=== PATIENT | female | born 1950 | race Caucasian/White ===

== ENCOUNTER 2018-01-19 06:45 | Day surgery (SDC) | payer MEDICARE ==
[~2018-01-19] VITALS: Ht 167.6 cm; Wt 111.6 kg
[~2018-01-19 06:45] MED LIST: ALBU2.5V5; ALBU90OI; ALBU90OI INH; CLOB.05TO; Calcium Acetat667 MG PO; Diovan160 MG; LORA1; LORA1 PO; Multivitamin1 EAC1 PO; Oxybutynin Chlo10 MG; Oxybutynin Chlo10 MG PO; ROPI2 PO; VALSARTAN160 MG PO; Zantac150 MG; Zantac150 MG PO
[2018-01-19] MEDS ORDERED: HYDCHL25 PO (07:20)
== END 2018-01-19 11:40 | disposition home or self-care (01) ==
LOC: ORSCSDS 06:45
PROVIDERS: Podiatrist Foot & Ankle Surgery
PROC: 0MQR0ZZ Repair Left Ankle Bursa and Ligament, Open Approach (ICD-10-PCS; principal; 2018-01-19 08:15)
PROC: 0LQW0ZZ Repair Left Foot Tendon, Open Approach (ICD-10-PCS; principal; 2018-01-19 08:15)
DX: M66.862 Spontaneous rupture of other tendons, left lower leg (principal); S93.692A Other sprain of left foot, initial encounter; I12.9 Hypertensive chronic kidney disease with stage 1 through stage 4 chronic kidney disease, or unspecified chronic kidney disease; N18.9 Chronic kidney disease, unspecified; F17.210 Nicotine dependence, cigarettes, uncomplicated; E66.01 Morbid (severe) obesity due to excess calories; Z68.41 Body mass index [BMI] 40.0-44.9, adult; Z79.899 Other long term (current) drug therapy
CPT/HCPCS: C1713; J0690; J1100; J2250; J2405; J3010; J7120

== ENCOUNTER 2019-10-16 00:05 | Day surgery (SDC) | payer MEDICARE ==
[~2019-10-16 00:05] MED LIST changes: +HYDCHL25 PO
--- NOTE | 2019-10-16 09:30 | NUR ---
PT ARRIVES TO APPT AND HAS INTAKE OF 20 OUNCES OF H2O. PT HAS URGENCY AND BLADDER SCAN REVEALS 362 ML. PT UP TO BRP AND VOIDED 300 ML OF YELLOW URINE. RESCANNED BLADDER AND REVEALS 0 ML OF URINE. PT HOSEA PROCEDURE WELL, WILL FAX THIS TX RECORD TO DR RAYMOND,
== END 2019-10-16 09:19 | disposition home or self-care (01) ==
LOC: ATC 00:05
DX: N39.46 Mixed incontinence (principal); I12.9 Hypertensive chronic kidney disease with stage 1 through stage 4 chronic kidney disease, or unspecified chronic kidney disease; N18.3 Chronic kidney disease, stage 3 (moderate); Z88.6 Allergy status to analgesic agent; Z88.5 Allergy status to narcotic agent; Z79.899 Other long term (current) drug therapy
CPT/HCPCS: 51798

== ENCOUNTER 2021-02-16 06:22 | Day surgery (SDC) | payer MEDICARE ==
[~2021-02-16] VITALS: Ht 165.1 cm; Wt 108.0 kg
[~2021-02-16 06:22] MED LIST changes: +Aspir 8181 MG PO; +CLON.1 PO; +CYCL10 PO; +Crestor20 MG PO; +DILT120 PO; +FURO20 PO; +HYDR1TAB94 PO; +LOSA50 PO; +METO25 PO; +POTA10T PO
[2021-02-16] MEDS ORDERED: GLUCHON PO (07:21)
--- NOTE | 2021-02-16 09:19 | NUR ---
PT BACK TO RECOVERY ROOM VIA RECLINER, DENIES PAIN OR DISCOMFORT. RIGHT RADIAL SITE WITH TR BAND IN PLACE. NO BLEEDING OR SWELLING NOTED.
--- NOTE | 2021-02-16 10:31 | NUR ---
PT AMBULATED TO BATHROOM WITHOUT DIFFICULTY. DENIES PAIN OR DISCOMFORT. RX FOR PLAVIX CALLED INTO [facility] ON [address] PER PT REQUEST.
--- NOTE | 2021-02-16 11:15 | NUR ---
RIGHT RADIAL TR BAND HAS BEEN FULLY DEFLATED. NO BLEEDING OR SWELLING NOTED. SOME PURPLE BRUISING AROUND SITE, PT STATES IS MILDLY TENDER. PT DENIES NEEDS, CALL LIGHT IN REACH
[2021-02-16] MEDS ORDERED: PLAVIX75 MG PO (11:49)
--- NOTE | 2021-02-16 12:00 | NUR ---
IV DC'D, CATH INTACT. PT GIVEN DC INSTRUCTIONS AND FOLLOW UP INFO. VERBALIZED UNDERSTANDING. RIGHT RADIAL SITE REMAINS SOFT AND WITHOUT SWELLING. SPLINT AND SPLING IN PLACE. PT OUT TO CAR VIA WHEELCHAIR, ACCOMPANIED BY FRIENDS.
== END 2021-02-16 12:00 | disposition home or self-care (01) ==
LOC: MHTC 06:22
DX: I25.118 Atherosclerotic heart disease of native coronary artery with other forms of angina pectoris (principal); I25.82 Chronic total occlusion of coronary artery; E11.22 Type 2 diabetes mellitus with diabetic chronic kidney disease; I13.0 Hypertensive heart and chronic kidney disease with heart failure and stage 1 through stage 4 chronic kidney disease, or unspecified chronic kidney disease; N18.2 Chronic kidney disease, stage 2 (mild); I50.9 Heart failure, unspecified; E66.01 Morbid (severe) obesity due to excess calories; E78.00 Pure hypercholesterolemia, unspecified; F17.200 Nicotine dependence, unspecified, uncomplicated; Z88.8 Allergy status to other drugs, medicaments and biological substances; Z88.5 Allergy status to narcotic agent; Z88.6 Allergy status to analgesic agent; Z79.82 Long term (current) use of aspirin; Z68.39 Body mass index [BMI] 39.0-39.9, adult
CPT/HCPCS: 76937; 93458; 99152; 99153; A9270; C1769; C1894; J1644; J2250; J3010; J7030; J7050; Q9967

== ENCOUNTER → 2021-04-01 | Outpatient (CLI) | payer MEDICARE ==
[~2021-04-01] MED LIST changes: +AMLO5 PO; +Amiodarone HCl200 MG PO; +Calicum 500+D1 EACH; +ERYT.5TO BOTHEYES; +GLUCHON PO; +KETO.5OPSO BOTHEYES; +NITR.4SL SL; +Norco 5-325 Ta1 EACH PO; +PLAVIX75 MG PO
== END | disposition home or self-care (01) ==
LOC: LAB 16:37 → LAB SHORT 16:37
DX: L02.415 Cutaneous abscess of right lower limb (principal); L03.90 Cellulitis, unspecified
CPT/HCPCS: 87070; 87077; 87186; 87205

== ENCOUNTER 2021-05-19 10:40 | Emergency (ER) | payer MEDICARE ==
[~2021-05-19] VITALS: Ht 165.1 cm; Wt 113.4 kg
[2021-05-19 11:38] LABS: BASOPHILS ABSOLUTE AUTO 0.03 K/mm3 (0.00-0.23); BASOPHILS PERCENT AUTO 0 % (0-2); EOSINOPHILS ABSOLUTE AUTO 0.29 K/mm3 (0.00-0.68); EOSINOPHILS PERCENT AUTO 4 % (0-6); Hematocrit 35.2 % (33.0-51.0); Hemoglobin 10.8 g/dL (11.5-16.0); IMMATURE GRAN ABSOLUTE AUTO 0.02 K/mm3 (0.00-0.10); IMMATURE GRAN PERCENT AUTO 0 % (0-1); LYMPHOCYTES ABSOLUTE AUTO 1.35 K/mm3 (0.84-5.20); LYMPHOCYTES PERCENT AUTO 17 % (21-46); MONOCYTES ABSOLUTE AUTO 0.61 K/mm3 (0.16-1.47); MONOCYTES PERCENT AUTO 8 % (4-13); Mean Corpuscular HGB 27.1 pg (26.0-34.0); Mean Corpuscular HGB Conc 30.7 g/dL (31.5-36.5); Mean Corpuscular Volume 88 fL (80-100); Mean Platelet Volume 11.9 fL (9.1-12.4); NEUTROPHILS ABSOLUTE AUTO 5.68 K/mm3 (1.96-9.15); NEUTROPHILS PERCENT AUTO 71 % (41-73); Platelet Count 275 K/mm3 (150-400); RDW Coefficient Variation 13.9 % (11.7-14.2); RDW Standard Deviation 44.9 fL (35.1-46.3); Red Blood Cell Count 3.99 M/mm3 (3.80-5.20); White Blood Cell Count 7.98 K/mm3 (4.00-11.30)
[2021-05-19 12:09] LABS: Albumin, Blood 2.7 g/dL (3.4-5.0); Albumin/Globulin Ratio 0.8 (0.8-1.8); Bilirubin, Total 0.3 mg/dL (0.1-1.0); Bun/Creatinine Ratio 20.6 (12.0-20.0); Calcium, Blood 9.1 mg/dL (8.5-10.1); Creatinine, Blood 1.31 mg/dL (0.40-1.00); Globulin, Blood 3.6 g/dL (2.2-4.0); Potassium, Blood 4.7 mmol/L (3.5-5.5); Total Protein, Blood 6.3 g/dL (6.4-8.2)
== END 2021-05-19 15:04 | disposition left against medical advice (07) ==
LOC: ER 10:40
PROVIDERS: Physician Assistant
DX: M79.89 Other specified soft tissue disorders (principal); Z53.21 Procedure and treatment not carried out due to patient leaving prior to being seen by health care provider
CPT/HCPCS: 36415; 71046; 80053; 85025; 99284

== ENCOUNTER 2021-05-20 07:31 | Emergency (ER) | payer MEDICARE ==
[~2021-05-20] VITALS: Ht 165.1 cm; Wt 113.4 kg
== END 2021-05-20 11:07 | disposition home or self-care (01) ==
LOC: ER 07:31
DX: T81.89XA Other complications of procedures, not elsewhere classified, initial encounter (principal); S71.101D Unspecified open wound, right thigh, subsequent encounter; I10 Essential (primary) hypertension; E78.5 Hyperlipidemia, unspecified; Z87.891 Personal history of nicotine dependence; Z88.6 Allergy status to analgesic agent; Z88.5 Allergy status to narcotic agent; Z88.8 Allergy status to other drugs, medicaments and biological substances; Z79.899 Other long term (current) drug therapy; Z79.82 Long term (current) use of aspirin
CPT/HCPCS: 99282

== ENCOUNTER → 2021-05-25 | Outpatient (CLI) | payer MEDICARE | END | disposition home or self-care (01) | LOC: LAB SHORT 13:02 → LAB 13:02 | DX: L02.415 Cutaneous abscess of right lower limb (principal) | CPT/HCPCS: 87070; 87077; 87205 ==

== ENCOUNTER 2021-07-30 11:59 | Observation (INO) | payer MEDICARE ==
[~2021-07-30] VITALS: Ht 165.1 cm; Wt 113.0 kg
[2021-07-30] MEDS ORDERED: XARELTO20 MG PO (12:33)
[2021-07-30] MEDS ORDERED: DULO60 PO (12:34)
[2021-07-30] MEDS ORDERED: Felodipine ER5 MG PO (12:35)
[2021-07-30] MEDS ORDERED: METO25ER PO (12:36)
[2021-07-30] MEDS ORDERED: OMEP20ER PO (13:01)
--- NOTE | 2021-07-30 16:19 | NUR ---
CARE ASSUMPTION/ARRIVAL TO PCU PATIENT ARRIVED TO [facility]U FROM [facility] VIA PCU BED. PATIENT IS ALERT AND ORIENTED X4. PERRLA. NEURO IS INTACT. VSS. TELE PACED SR 78. PATIENT REPORTS NO CHEST PAIN. PATIENT HAS STRONG RADIAL PULSES AND WEAK PEDIS PULSES. PATIENT RIGHT LEG IS SWOLLEN, RED, EDEMATRIS, AND WARM TO THE TOUCH. PATIENT STATES IT HAS BEEN LIKE THIS. PATIENT NO SKIN ISSUES NOTED BESIDES WHERE PACER WAS IMPLANTED. THE SITE IS CLEAN, NO BLEEDING, SWELLING OR REDDNESS, NONTENDER. PATIET LUNG SOUNDS CLEAR/DIM. SEE ASSESSMENT DETAILS FOR FULL ASSESSMENT. PATIENT HAS NO COMPLAINTS AT THIS TIME AND IS STAYING OVERNIGHT FOR OBSERVATION AND THE PLAN IS TO DISCHARGE IN THE MORNING. THIS RN CALLED AND INFORMED HER . CALL LIGHT IS WITHIN REACH AND BED IN LOWEST POSITION. WILL CONTINUE TO MONITOR AND PROVIDER CARE.
--- NOTE | 2021-07-30 18:30 | NUR ---
SHIFT SUMMARY PATIENT NEURO REMAINS UNCHAGED FROM ARRIVAL TO UNIT. PATIENT REPORTS SOME DISCOMFORT AND INCISION SITE AND RECEIVED PAIN MED PER EMAR. PATIENT TOOK A WALK AROUND THE UNIT WITH VISITOR. PATIENT HAS A SLING IN PLACE AND WAS EDUCATED ON MOVEMENT OF ARM POST PROCEDURE. NO ACUTE CHANGES. WILL CONTINUE TO MONITOR AND PROVIDE CARE UNTIL HAND OFF WITH NEXT SHIFT.
[2021-07-31 04:08] LABS: BASOPHILS ABSOLUTE AUTO 0.04 K/mm3 (0.00-0.23); BASOPHILS PERCENT AUTO 0 % (0-2); EOSINOPHILS ABSOLUTE AUTO 0.34 K/mm3 (0.00-0.68); EOSINOPHILS PERCENT AUTO 4 % (0-6); Hematocrit 43.2 % (33.0-51.0); Hemoglobin 12.6 g/dL (11.5-16.0); IMMATURE GRAN ABSOLUTE AUTO 0.01 K/mm3 (0.00-0.10); IMMATURE GRAN PERCENT AUTO 0 % (0-1); LYMPHOCYTES PERCENT AUTO 15 % (21-46); MONOCYTES ABSOLUTE AUTO 0.68 K/mm3 (0.16-1.47); MONOCYTES PERCENT AUTO 7 % (4-13); Mean Corpuscular HGB 25.2 pg (26.0-34.0); Mean Corpuscular HGB Conc 29.2 g/dL (31.5-36.5); Mean Corpuscular Volume 86 fL (80-100); Mean Platelet Volume 11.6 fL (9.1-12.4); NEUTROPHILS ABSOLUTE AUTO 6.84 K/mm3 (1.96-9.15); NEUTROPHILS PERCENT AUTO 74 % (41-73); Platelet Count 247 K/mm3 (150-400); RDW Coefficient Variation 15.5 % (11.7-14.2); RDW Standard Deviation 49.1 fL (35.1-46.3); White Blood Cell Count 9.31 K/mm3 (4.00-11.30)
[2021-07-31 04:25] LABS: Bun/Creatinine Ratio 21.7 (12.0-20.0); Calcium, Blood 9.2 mg/dL (8.5-10.1); Creatinine, Blood 1.38 mg/dL (0.40-1.00); Potassium, Blood 4.4 mmol/L (3.5-5.5)
--- NOTE | 2021-07-31 09:08 | NUR ---
CARE ASSUMPTION PATIENT IS ALERT AND ORIENTED X4. PERRLA. NEURO IS INTACT. VSS. SPO2 >90% ON VENTI MASK 75L 95% AND RR 28. PATIENT DID REPORT SOME DIFFICULTY BREATHING AND RT NOTIFED. LUNG SOUNDS CLEAR/DIM. PATIENT REPORTS RIB PAIN, SHOULDER, BACK, AND LEG PAIN. PATIENT RECEIVED PAIN MED PER EMAR AND OFFERED NONPHARMALOGICAL OPTIONS FOR RELIEF. SEE SHIFT ASSESSMENT FOR FULL DETAILS. PATIENT FAMILY IS AT BEDSIDE. THIS RN PROVIDED ACTIVE LISTENING AND THERPAUETIC COMMUNICATION WHEN FAMILY ADDRESS CONCERNS AND WHEN PATIENT WAS TALKING ABOUT HIS PREVIOUS JOB. BED IS IN LOWEST POSITION AND CALL LIGHT WITHIN REACH. WILL CONTINUE TO MONITOR AND PROVIDE CARE.
--- NOTE | 2021-07-31 09:25 | NUR ---
CARE ASSUMPTION PATIENT IS ALERT AND ORIENTED X4. PERRLA. NEURO IS INTACT. VSS. TELE SR/PACED. PATIENT REPORTS NO CHEST PAIN. CAP REFILL <3SECONDS. STRONG RADIAL AND PEDIS PULSE. PATIENT LUNG SOUNDS CLEAR. PATIENT REPORTS NO PAIN, BUT SLIGHT DISCOMFORT FROM HER PACER INSERTION. PACER WAS INTERROGATED THIS AM FROM [facility]. CALL LIGHT WITHIN REACH AND BED IN LOWEST POSITION. WILL CONTINUE TO MONITOR AND PROVIDE CARE.
--- NOTE | 2021-07-31 11:58 | NUR ---
DISCHARGE THIS RN PROVIDED DISCHARGE EDUCATION TO THE PATIENT. THIS RN WENT OVER WHAT MEDICATIONS TO HOLD UNTIL PATIENT SEES FOLLOW UP WITH DRILLING FLUIDS SPECIALIST, WENT OVER ACTIVITY RESTRICTIONS, AND OTHER RESTRICTIONS. THIS RN REMOVED THE PATIENT IV. ALL OF THE PATIENT BELONGINGS WERE GATHERED AND WITH THE PATIENT WHEN SHE LEFT. PATIENT LEFT VIA WHEELCHAIR AND HER PICKED HER UP. PATIENT WAS IN NO DISTRESS WHEN LEAVING AND HAD NO CHANGES.
== END 2021-07-31 11:55 | disposition home or self-care (01) ==
LOC: MHTC 11:59 → PCU 14:58 → MHTC 15:27 → PCU 15:27
PROVIDERS: Internal Medicine Cardiovascular Disease; ADMIT Internal Medicine Cardiovascular Disease
DX: I49.5 Sick sinus syndrome (principal); I25.10 Atherosclerotic heart disease of native coronary artery without angina pectoris; I48.0 Paroxysmal atrial fibrillation; E78.5 Hyperlipidemia, unspecified; E11.22 Type 2 diabetes mellitus with diabetic chronic kidney disease; I12.9 Hypertensive chronic kidney disease with stage 1 through stage 4 chronic kidney disease, or unspecified chronic kidney disease; N18.9 Chronic kidney disease, unspecified; E66.01 Morbid (severe) obesity due to excess calories; F17.210 Nicotine dependence, cigarettes, uncomplicated; Z95.1 Presence of aortocoronary bypass graft; Z88.5 Allergy status to narcotic agent; Z88.8 Allergy status to other drugs, medicaments and biological substances; Z88.6 Allergy status to analgesic agent; Z68.41 Body mass index [BMI] 40.0-44.9, adult
CPT/HCPCS: 33228; 36415; 71046; 80048; 85025; 99152; 99153; A9270; C1785; C1894; C1898; J0690; J1580; J2250; J3010; J7030; J7040

== ENCOUNTER 2021-11-05 03:31 | Day surgery (SDC) | payer MEDICARE, OTHER ==
[~2021-11-05 03:31] MED LIST changes: +DULO60 PO; +Felodipine ER5 MG PO; +METO25ER PO; +OMEP20ER PO; +XARELTO20 MG PO
== END 2021-11-05 23:21 | disposition home or self-care (01) ==
LOC: WOUND 03:31
DX: I87.311 Chronic venous hypertension (idiopathic) with ulcer of right lower extremity (principal); L97.812 Non-pressure chronic ulcer of other part of right lower leg with fat layer exposed; I87.2 Venous insufficiency (chronic) (peripheral); Z95.1 Presence of aortocoronary bypass graft; Z72.0 Tobacco use
CPT/HCPCS: G0463

== ENCOUNTER 2022-10-03 11:21 | Day surgery (SDC) | payer MEDICARE, OTHER ==
[~2022-10-03] VITALS: Ht 165.1 cm; Wt 117.3 kg
[2022-10-03] MEDS ORDERED: ABILIFY MYCITE2 M2 (12:16)
[2022-10-03] MEDS ORDERED: Isosorbide Mono30 MG (12:16)
[2022-10-03] MEDS ORDERED: PREG50 (12:17)
[2022-10-03] MEDS ORDERED: SPIR25 (12:17)
[2022-10-03] MEDS ORDERED: VERA180ERB (12:17)
[2022-10-03] MEDS ORDERED: CATAPRES-TTS 31 EAC2 (12:17)
[2022-10-03] MEDS ORDERED: TRELEGY ELLIPT1 EACH (12:18)
[2022-10-03] MEDS ORDERED: ALBU90OI (12:18)
[2022-10-03] MEDS ORDERED: MODA200 (12:18)
[2022-10-03 15:09] VITALS: BP 153/89
== END 2022-10-03 14:55 | disposition home or self-care (01) ==
LOC: ORSCSDS 11:21
PROVIDERS: Student in an Organized Health Care Education/Training Program
PROC: 0DBL8ZX Excision of Transverse Colon, Via Natural or Artificial Opening Endoscopic, Diagnostic (ICD-10-PCS; principal; 2022-10-03 12:45)
PROC: 0DBM8ZX Excision of Descending Colon, Via Natural or Artificial Opening Endoscopic, Diagnostic (ICD-10-PCS; principal; 2022-10-03 12:45)
PROC: 0DBN8ZX Excision of Sigmoid Colon, Via Natural or Artificial Opening Endoscopic, Diagnostic (ICD-10-PCS; principal; 2022-10-03 12:45)
DX: Z12.11 Encounter for screening for malignant neoplasm of colon (principal); Z86.010 Personal history of colon polyps; D12.3 Benign neoplasm of transverse colon; K63.5 Polyp of colon; I10 Essential (primary) hypertension; I25.10 Atherosclerotic heart disease of native coronary artery without angina pectoris; G47.33 Obstructive sleep apnea (adult) (pediatric); J44.9 Chronic obstructive pulmonary disease, unspecified; F17.210 Nicotine dependence, cigarettes, uncomplicated; E11.9 Type 2 diabetes mellitus without complications; E66.01 Morbid (severe) obesity due to excess calories; Z68.41 Body mass index [BMI] 40.0-44.9, adult; Z79.899 Other long term (current) drug therapy; Z79.01 Long term (current) use of anticoagulants
CPT/HCPCS: 88305; J2405; J2704; J7120

== ENCOUNTER 2024-02-23 04:48 | Day surgery (SDC) | payer MEDICARE, OTHER ==
[~2024-02-23 04:48] MED LIST changes: +ABILIFY MYCITE2 M2; +CATAPRES-TTS 31 EAC2; +Isosorbide Mono30 MG; +MODA200; +PREG50; +SPIR25; +TRELEGY ELLIPT1 EACH; +VERA180ERB
== END 2024-02-24 01:42 | disposition home or self-care (01) ==
LOC: WOUND 04:48
DX: S81.801D Unspecified open wound, right lower leg, subsequent encounter (principal); Z95.1 Presence of aortocoronary bypass graft; X58.XXXD Exposure to other specified factors, subsequent encounter
CPT/HCPCS: A6213; G0463

== ENCOUNTER 2024-03-07 02:19 | Day surgery (SDC) | payer MEDICARE, OTHER ==
[2024-03-07] MEDS ORDERED: Lidocaine HCl 4% Cream 5 GM ONE (12:23)
== END 2024-03-07 23:00 | disposition home or self-care (01) ==
LOC: WOUND 02:19
DX: L97.822 Non-pressure chronic ulcer of other part of left lower leg with fat layer exposed (principal); L97.812 Non-pressure chronic ulcer of other part of right lower leg with fat layer exposed; S81.801A Unspecified open wound, right lower leg, initial encounter; X58.XXXA Exposure to other specified factors, initial encounter
CPT/HCPCS: 87070; 87075; 87077; 87186; 87205; A6213; A9270

== ENCOUNTER 2024-03-14 02:12 | Day surgery (SDC) | payer MEDICARE, OTHER ==
[2024-03-14] MEDS ORDERED: Lidocaine HCl 4% Cream 5 GM ONE (12:20)
== END 2024-03-15 02:49 | disposition home or self-care (01) ==
LOC: WOUND 02:12
DX: I87.312 Chronic venous hypertension (idiopathic) with ulcer of left lower extremity (principal); L97.822 Non-pressure chronic ulcer of other part of left lower leg with fat layer exposed; I89.0 Lymphedema, not elsewhere classified; I48.91 Unspecified atrial fibrillation; Z79.01 Long term (current) use of anticoagulants
CPT/HCPCS: A6213; A9270

== ENCOUNTER 2024-03-22 02:44 | Day surgery (SDC) | payer MEDICARE, OTHER ==
[2024-03-22] MEDS ORDERED: Lidocaine HCl 4% Cream 5 GM ONE (12:22)
[2024-03-22] MEDS ORDERED: Silver Nitr/Potassium Nitrate 1 EA APPL ONE (13:09)
== END 2024-03-22 23:00 | disposition home or self-care (01) ==
LOC: WOUND 02:44
DX: I87.312 Chronic venous hypertension (idiopathic) with ulcer of left lower extremity (principal); L97.822 Non-pressure chronic ulcer of other part of left lower leg with fat layer exposed
CPT/HCPCS: A9270

== ENCOUNTER 2024-03-29 03:11 | Day surgery (SDC) | payer MEDICARE, OTHER ==
[2024-03-29] MEDS ORDERED: Lidocaine HCl 4% Cream 5 GM ONE (10:54)
== END 2024-03-29 23:43 | disposition home or self-care (01) ==
LOC: WOUND 03:11
DX: I87.313 Chronic venous hypertension (idiopathic) with ulcer of bilateral lower extremity (principal); L97.822 Non-pressure chronic ulcer of other part of left lower leg with fat layer exposed; I87.2 Venous insufficiency (chronic) (peripheral); Z72.0 Tobacco use
CPT/HCPCS: 99406; A6213; A9270

== ENCOUNTER 2024-04-04 03:35 | Day surgery (SDC) | payer MEDICARE, OTHER | END 2024-04-04 23:00 | disposition home or self-care (01) | LOC: WOUND 03:35 | DX: I87.313 Chronic venous hypertension (idiopathic) with ulcer of bilateral lower extremity (principal); L97.822 Non-pressure chronic ulcer of other part of left lower leg with fat layer exposed; I87.2 Venous insufficiency (chronic) (peripheral); Z72.0 Tobacco use | CPT/HCPCS: A6213; G0463 ==

== ENCOUNTER 2024-04-12 04:05 | Day surgery (SDC) | payer MEDICARE, OTHER | END 2024-04-13 03:05 | disposition home or self-care (01) | LOC: WOUND 04:05 | DX: I87.313 Chronic venous hypertension (idiopathic) with ulcer of bilateral lower extremity (principal); L97.822 Non-pressure chronic ulcer of other part of left lower leg with fat layer exposed; I87.2 Venous insufficiency (chronic) (peripheral); Z72.0 Tobacco use | CPT/HCPCS: G0463 ==

== ENCOUNTER 2025-01-14 10:46 | Day surgery (SDC) | payer MEDICARE, OTHER ==
[~2025-01-14] VITALS: Ht 162.6 cm; Wt 110.2 kg
[~2025-01-14 10:46] MED LIST changes: -ABILIFY MYCITE2 M2; +ABILIFY MYCITE2 M2 PO; +Chantix1 MG PO; -Crestor20 MG PO; +Crestor40 MG PO; +Diflucan100 MG PO; +EPLE25 PO; +FARXIGA10 MG PO; -Isosorbide Mono30 MG; +Isosorbide Mono30 MG PO; -PREG50; +PREG50 PO; -VERA180ERB; +VERA180ERB PO
[2025-01-14 11:02] VITALS: BP 142/87
[2025-01-14] MEDS ORDERED: CATAPRES0.3 MG PO (11:15)
[2025-01-14] MEDS ORDERED: NS 1,000 ML IV ONE ×2 (11:39→11:48)
[2025-01-14] MEDS ORDERED: Bupivacaine 0.5% HCl 5 MG/ML 30MLVIAL ONE (11:48)
[2025-01-14] MEDS ORDERED: Dexamethasone Sodium Phosphate 4 MG/ML 5ML VIAL XX ONE (12:05)
[2025-01-14] MEDS ORDERED: Midazolam HCl 1MG / ML 2ML Vial ONE (12:25)
[2025-01-14] MEDS ORDERED: FentaNYL Citrate 50 MCG/ML 2 ML Injection ONE (12:27)
[2025-01-14 14:02] VITALS: BP 153/92
--- NOTE | 2025-01-14 14:13 | NUR ---
FOLLOWED PT BACK TO RECOVERY ROOM, VS WNL. DRESSINGS ON BILATERAL KNEES WITHOUT DRAINAGE NOTED. PT SITTING UP EATING LUNCH.
[2025-01-14 14:15] VITALS: BP 91/78
[2025-01-14 14:25] VITALS: BP 153/96
[2025-01-14 14:30] VITALS: BP 144/85
--- NOTE | 2025-01-14 14:43 | NUR ---
IN TO TALK WITH PT, ALL QUESTIONS ANSWERED. PT HAS BEEN UP TO BATHROOM AND DRESSED. BILATERAL KNEE DRESSINGS IN PLACE AND NO DRAINAGE NOTED.
--- NOTE | 2025-01-14 15:07 | NUR ---
DISCHARGE INSTRUCTIONS GONE OVER WITH PT, VERBALIZES UNDERSTANDING OF INSTRUCTIONS. SALINE LOCK REMOVED WITH CATHETER INTACT, DRESSING APPLIED. PT TO PRIVATE VEHICLE WITH ONE STAFF PER W/C. WALKER LEFT AT ADMITTING PICKED UP WELL AND GIVEN TO SPOUSE.
== END 2025-01-14 15:25 | disposition home or self-care (01) ==
LOC: MHTC 10:46
DX: M17.0 Bilateral primary osteoarthritis of knee (principal); I25.10 Atherosclerotic heart disease of native coronary artery without angina pectoris; I12.9 Hypertensive chronic kidney disease with stage 1 through stage 4 chronic kidney disease, or unspecified chronic kidney disease; N18.9 Chronic kidney disease, unspecified; G25.81 Restless legs syndrome; F17.210 Nicotine dependence, cigarettes, uncomplicated; G47.10 Hypersomnia, unspecified; G47.33 Obstructive sleep apnea (adult) (pediatric); G89.29 Other chronic pain; N39.46 Mixed incontinence; I49.9 Cardiac arrhythmia, unspecified; I83.10 Varicose veins of unspecified lower extremity with inflammation; J44.9 Chronic obstructive pulmonary disease, unspecified; J45.40 Moderate persistent asthma, uncomplicated; M47.817 Spondylosis without myelopathy or radiculopathy, lumbosacral region; M54.06 Panniculitis affecting regions of neck and back, lumbar region; E66.01 Morbid (severe) obesity due to excess calories; Z68.41 Body mass index [BMI] 40.0-44.9, adult; Z79.01 Long term (current) use of anticoagulants; Z79.84 Long term (current) use of oral hypoglycemic drugs; Z79.899 Other long term (current) drug therapy; Z88.5 Allergy status to narcotic agent; Z88.6 Allergy status to analgesic agent; Z88.8 Allergy status to other drugs, medicaments and biological substances; Z95.0 Presence of cardiac pacemaker; Z95.1 Presence of aortocoronary bypass graft
CPT/HCPCS: 0441T; 99152; 99153; C2618; J1100; J2250; J3010; J7030

== ENCOUNTER 2025-04-01 06:01 | Day surgery (SDC) | payer MEDICARE, OTHER ==
[~2025-04-01] VITALS: Ht 162.6 cm; Wt 109.0 kg
[~2025-04-01 06:01] MED LIST changes: +CATAPRES0.3 MG PO
[2025-04-01 06:34] VITALS: BP 138/84
[2025-04-01] MEDS ORDERED: Bupivacaine 0.5% HCl 5 MG/ML 30MLVIAL ONE (06:48)
[2025-04-01] MEDS ORDERED: NS 1,000 ML IV ONE ×2 (06:49→06:55)
[2025-04-01] MEDS ORDERED: Dexamethasone Sodium Phosphate 4 MG/ML 5ML VIAL XX ONE (06:50)
[2025-04-01] MEDS ORDERED: Naloxone HCl 0.4MG / ML 1ML Vial ONE (06:54)
[2025-04-01] MEDS ORDERED: Flumazenil 0.1 MG / ML 5ML Vial ONE (06:54)
[2025-04-01] MEDS ORDERED: Midazolam HCl 1MG / ML 2ML Vial ONE (06:55)
[2025-04-01] MEDS ORDERED: FentaNYL Citrate 50 MCG/ML 2 ML Injection ONE (06:55)
[2025-04-01 09:03] VITALS: BP 131/75
[2025-04-01 09:15] VITALS: BP 130/73
[2025-04-01 09:33] VITALS: BP 117/63
--- NOTE | 2025-04-01 10:30 | NUR ---
PT AND VERBALIZED UNDERSTANDING OF WRITTEN AND VERBAL D/C INST. IV REMOVED. PT UP TO THE BATHROOM /C SBA. TOLERATED WELL. PAIN 0/10. PT TAKEN OUT OF THE DEPARTMENT VIA W/C.
== END 2025-04-01 22:51 | disposition home or self-care (01) ==
LOC: MHTC 06:01 → CT 07:00 → MHTC 22:51
DX: M25.562 Pain in left knee (principal); G89.29 Other chronic pain; M17.0 Bilateral primary osteoarthritis of knee; I25.10 Atherosclerotic heart disease of native coronary artery without angina pectoris; I12.9 Hypertensive chronic kidney disease with stage 1 through stage 4 chronic kidney disease, or unspecified chronic kidney disease; N18.9 Chronic kidney disease, unspecified; G25.81 Restless legs syndrome; Z95.0 Presence of cardiac pacemaker; F17.210 Nicotine dependence, cigarettes, uncomplicated; Z88.5 Allergy status to narcotic agent; Z88.6 Allergy status to analgesic agent; Z88.8 Allergy status to other drugs, medicaments and biological substances; Z79.01 Long term (current) use of anticoagulants; Z79.899 Other long term (current) drug therapy; Z90.710 Acquired absence of both cervix and uterus
CPT/HCPCS: 0441T; 77013; 99152; 99153; C2618; J1100; J2250; J2312; J3010; J7030